=== PATIENT | male | born 1945 | race Caucasian/White ===

== ENCOUNTER 2023-09-30 09:43 | Outpatient (AMB) | payer OTHER, SELFPAY ==
--- NOTE | 2023-09-30 09:45 | HO.NEPHOV_ITS ---
Vital Signs 09/30/23 09:56 09/30/23 10:45 Height 5 ft 9 in Weight 172 lb BMI 25.4 BP 158/62 H 150/70 H Blood Pressure Location Lt brachial Lt brachial Position Sitting Standing Pulse 56 Pulse Source Pulse Oximeter Pulse Oximetry (%) 97 Oxygen Delivery Method Room Air Intake Visit Reasons: Dx- Hyponatremia Accompanied by: Brother in law Allergies statin Allergy (Unknown, Uncoded 09/30/23 10:00) Unknown Medication List - Last Reconciled 09/30/23 by Lamin Villafuerte MD amlodipine 10 mg PO DAILY calcium carbonate 500 mg PO DAILY clopidogrel 75 mg PO DAILY doxazosin 2 mg PO BID fenofibrate nanocrystallized 145 mg PO DAILY [id number] 685-89-116-300 mcg (Centrum Silver Men) 1 tab PO DAILY nebivolol 10 mg PO DAILY omega-3 acid ethyl esters 2 caps PO BID prednisolone acetate 1% drps ophthalmic (eye) valsartan 320 mg PO DAILY HPI Comments Details: . Paco is a pleasant 77 yr old man with a history of resistant hypertension for quite some time requiring at least 4 antihypertensive medications. He has been referred for hyponatremia He has been on amlodipine 10 mg Cardura 2 mg, nebivolol 10 mg and valsartan HCT 320/20 mg once a day. Few weeks ago he developed significant nausea and vomiting which required hospitalization. He was found to have severe hyponatremia with a serum sodium of 122. Hydrochlorothiazide was discontinued he was given IV fluids. Serum sodium has improved to 129 millimoles as of 09/28/2023. He was scheduled for spine surgery today but this has been placed on hold due to hyponatremia. Of note Paco has a history of smoking. He quit smoking 24 years ago. He has a history of carotid stenosis. No known history of coronary disease No history of any kidney disease in the past. Paco has been drinking plenty of free water prior to this episode. He has been drinking at least 80-90 oz of free water. [facility] Medical History (Updated 09/30/23 @ 10:40 by Lamin Villafuerte MD) Type 2 diabetes mellitus without complication Hyperglycemia Atherosclerosis of abdominal aorta Insomnia Statin myopathy Bradycardia Personal history of skin cancer Vitamin D deficiency Seborrhea Dyslipidemia Essential (primary) hypertension Carotid stenosis, asymptomatic Spinal stenosis of lumbar region without neurogenic claudication Epiretinal membrane Vitreous degeneration Adenomatous polyp of colon Review of Systems Const Denies fever(s) and Denies weight loss Card Denies chest pain Resp Denies cough and Denies hemoptysis GI Denies abdominal pain, Denies diarrhea and Denies nausea Musc Denies back pain Neuro Denies focal weakness Physical Exam Vital Signs: Last Vital Signs Pulse 56 09/30/23 09:56 BP 150/70 H 09/30/23 10:45 Pulse Ox 97 09/30/23 09:56 Oxygen Delivery Method Room Air 09/30/23 09:56 BMI result Body Mass Index 25.4 Const General: comfortable; No acute distress Orientation/consciousness: patient oriented x3 Eyes General: appearance normal, both eyes and all related structures Visual Moreland: normal visual moreland by confrontation Neck Neck: Yes supple and Yes no JVD Resp Effort & Inspection: normal respiratory effort and respiratory effort not decreased Auscultation: rhonchi Cardio Palpation: no palpable S3 and no palpable S4 Heart sounds: no rubs GI Inspection: Yes normal to inspection Palpation (GI): Soft to palpation Percussion: Yes normal to percussion Auscultation: normal bowel sounds General: Yes no CVA tenderness Back/Spine/Pelvis Back: no CVA tenderness Skin General skin exam: no petechiae and no purpura Neuro General: patient oriented x3 and no focal motor deficits Extrem General: No clubbing and No edema Results Reviewed Results Reviewed: As of 09/28/2023 Serum creatinine 1.3 Serum sodium 129. Other electrolytes normal. Nephrology Results: Sodium 133 mmol/L (135-145) L 09/30/23 Potassium 5.1 mmol/L (3.3-5.1) 09/30/23 Chloride 101 mmol/L (96-108) 09/30/23 Carbon Dioxide 24 mmol/L (22-29) 09/30/23 BUN 31 mg/dL (9-16) H 09/30/23 Creatinine 1.51 mg/dL (0.5-1.4) H 09/30/23 Calcium 10.4 mg/dL (8.4-10.2) H 09/30/23 Urine Creatinine 44.09 mg/dL 09/30/23 Assessment & Plan Assessment & Plan (1) Hyponatremia: Code(s): E87.1 - Hypo-osmolality and hyponatremia Category: Medical Plan: Hyponatremia primarily due to decreased free water clearance due to non osmotic ADH release. Serum sodium could have worsened with excessive water intake while he was on hydrochlorothiazide. Hydrochlorothiazide could decrease renal free water clearance and thereby contributes to hyponatremia. Other causes including hypothyroidism should be ruled out. Agree with discontinuing hydrochlorothiazide. I have encouraged him to limit his oral free water intake. He can cut the intake by 50%. I have initiated a workup for hyponatremia including serum and urine osmolality, TSH and repeat serum sodium levels. . (2) CKD (chronic kidney disease): Code(s): N18.9 - Chronic kidney disease, unspecified Category: Medical Plan: Paco has stage III CKD in the setting of longstanding hypertension. Probably has hypertensive nephrosclerosis. Underlying glomerular nephritis or obstructive uropathy seem unlikely based on the clinical picture and available lab data. The goal is to slow the progression of renal disease Optimize blood pressure and maintain blood pressure less than 130/80. Avoid hypotension. Continue to avoid nephrotoxic agents including NSAIDs. She will screen for comorbid conditions as well. . (3) HTN (hypertension): Code(s): I10 - Essential (primary) hypertension Category: Medical Plan: Paco has resistant hypertension. Underlying renal artery stenosis is a possibility given the history of peripheral vascular disease in the form of carotid stenosis. He has a history of smoking in the past. Concur with current medications. I will increase doxazosin from 2 mg q.d. up to 2 mg b.i.d.. Goal is to maintain blood pressure less than 130/80 mm Hg. . Orders: Orders Basic Metabolic Panel Today E87.1 - Hypo-osmolality and hyponatremia, N18.9 - Chronic kidney disease, unspecified Osmolality, Serum Today E87.1 - Hypo-osmolality and hyponatremia, N18.9 - Chronic kidney disease, unspecified Osmolality Urine Today E87.1 - Hypo-osmolality and hyponatremia, N18.9 - Chronic kidney disease, unspecified Uric Acid Today E87.1 - Hypo-osmolality and hyponatremia, N18.9 - Chronic kidney disease, unspecified Creatinine Urine Today E87.1 - Hypo-osmolality and hyponatremia, N18.9 - Chronic kidney disease, unspecified Cortisol, Free Today E87.1 - Hypo-osmolality and hyponatremia, N18.9 - Chronic kidney disease, unspecified Sodium Urine Random Today E87.1 - Hypo-osmolality and hyponatremia, N18.9 - Chronic kidney disease, unspecified TSH reflex Free T4 Today E87.1 - Hypo-osmolality and hyponatremia, N18.9 - Chronic kidney disease, unspecified Coding Level of Care Code New Pt Level 5 (05943) Diagnoses Hyponatremia E87.1 CKD (chronic kidney disease) N18.9 HTN (hypertension) I10
[2023-09-30 09:56] VITALS: BP 158/62; PULSE 56; O2SAT 97; BMI 25.4
[2023-09-30 10:45] VITALS: BP 150/70
== END 2023-09-30 10:54 | disposition home or self-care (01) ==
PROVIDERS: PCP Internal Medicine; Visit Provider Internal Medicine Hypertension Specialist
DX: E87.1 Hypo-osmolality and hyponatremia (principal); I12.9 Hypertensive chronic kidney disease with stage 1 through stage 4 chronic kidney disease, or unspecified chronic kidney disease; N18.9 Chronic kidney disease, unspecified
CPT/HCPCS: 99204

== ENCOUNTER → 2023-09-30 09:43 | Outpatient (BNVA) | payer OTHER, SELFPAY | PROVIDERS: PCP Internal Medicine; Visit Provider Internal Medicine Hypertension Specialist ==

== ENCOUNTER 2023-09-30 10:37 | Outpatient (REF) | payer OTHER, SELFPAY ==
[2023-09-30 18:26] LABS: Creatinine Urine 44.09 mg/dL
[2023-09-30 18:34] LABS: Anion Gap 13 (12-20); Blood Urea Nitrogen 31 mg/dL (9-16); Calcium 10.4 mg/dL (8.4-10.2); Carbon Dioxide 24 mmol/L (22-29); Chloride 101 mmol/L (96-108); Estimated Glomerular Filt Rate 45; Glucose Random 123 mg/dL (60-115); Potassium 5.1 mmol/L (3.3-5.1); Sodium 133 mmol/L (135-145)
[2023-09-30 18:59] LABS: TSH reflex Free T4 0.76 uIU/mL (0.32-4.0)
[2023-09-30 19:01] LABS: Osmolality Urine 389 mosm/kg (373-1093)
[2023-09-30 19:56] LABS: Osmolality, Serum 299 mosm/kg (281-305)
[2023-10-06 23:08] LABS: Cortisol, Free 0.78 mcg/dL
== END 2023-09-30 10:38 | disposition home or self-care (01) ==
LOC: HO.HKASLDS 10:37
PROVIDERS: Visit Provider Internal Medicine Hypertension Specialist
DX: E87.1 Hypo-osmolality and hyponatremia (principal); N18.9 Chronic kidney disease, unspecified
CPT/HCPCS: 36415; 80048; 82530; 82570; 83930; 83935; 84300; 84443; 84550

== ENCOUNTER 2023-12-02 09:22 | Outpatient (AMB) | payer OTHER, SELFPAY ==
[2023-12-02 09:27] VITALS: BP 130/50; PULSE 62; O2SAT 98; BMI 25.7
--- NOTE | 2023-12-02 09:27 | HO.NEPHOV_ITS ---
Vital Signs 12/02/23 09:27 Height 5 ft 9 in Weight 174 lb 6 oz BMI 25.7 BP 130/50 L Pulse 62 Pulse Source Pulse Oximeter Pulse Oximetry (%) 98 Oxygen Delivery Method Room Air Intake Visit Reasons: 3-4 wks follow up/ CON Supervisor [employer] Required: No Accompanied by: Other Relationship Allergies [id number] Reductase Inhibitor Allergy (Verified 12/02/23 09:30) Unknown Medication List - Last Reconciled 12/02/23 by Lamin Villafuerte MD amlodipine 10 mg PO DAILY calcium carbonate 500 mg PO DAILY clopidogrel 75 mg PO DAILY doxazosin 2 mg PO BID fenofibrate nanocrystallized 145 mg PO DAILY [id number] 646-55-004-300 mcg (Centrum Silver Men) 1 tab PO DAILY nebivolol 10 mg PO DAILY omega-3 acid ethyl esters 2 caps PO BID prednisolone acetate 1% drps ophthalmic (eye) valsartan 320 mg PO DAILY HPI Comments Details: . Paco is a pleasant 77 yr old man with a history of resistant hypertension for quite some time requiring at least 4 antihypertensive medications. He has been referred for hyponatremia He has been on amlodipine 10 mg Cardura 2 mg, nebivolol 10 mg and valsartan HCT 320/20 mg once a day. Few weeks ago he developed significant nausea and vomiting which required hospitalization. He was found to have severe hyponatremia with a serum sodium of 122. Hydrochlorothiazide was discontinued he was given IV fluids. Serum sodium has improved to 129 millimoles as of 09/28/2023. He was scheduled for spine surgery today but this has been placed on hold due to hyponatremia. Of note Paco has a history of smoking. He quit smoking 24 years ago. He has a history of carotid stenosis. No known history of coronary disease No history of any kidney disease in the past. 12/02/23 After discontinuing hydrochlorothiazide serum sodium has normalized. He underwent back surgery 2 weeks ago and is doing very well. [facility] Medical History (Updated 12/02/23 @ 09:41 by Lamin Villafuerte MD) Type 2 diabetes mellitus without complication Hyperglycemia Atherosclerosis of abdominal aorta Insomnia Statin myopathy Bradycardia Personal history of skin cancer Vitamin D deficiency Seborrhea Dyslipidemia Essential (primary) hypertension Carotid stenosis, asymptomatic Spinal stenosis of lumbar region without neurogenic claudication Epiretinal membrane Vitreous degeneration Adenomatous polyp of colon Surgical History (Updated 12/02/23 @ 09:31 by Jamila Thomas MA) H/O Spinal surgery Social History (Updated 12/02/23 @ 09:30 by Jamila Thomas MA) Alcohol intake: never Patient Tobacco Use Status: Former Tobacco user Physical Exam Vital Signs: Last Vital Signs Pulse 62 12/02/23 09:27 BP 130/50 L 12/02/23 09:27 Pulse Ox 98 12/02/23 09:27 Oxygen Delivery Method Room Air 12/02/23 09:27 BMI result Body Mass Index 25.7 Const General: comfortable; No acute distress Orientation/consciousness: patient oriented x3 Eyes General: appearance normal, both eyes and all related structures Visual Moreland: normal visual moreland by confrontation Neck Neck: Yes supple and Yes no JVD Resp Effort & Inspection: normal respiratory effort and respiratory effort not decreased Auscultation: rhonchi Cardio Palpation: no palpable S3 and no palpable S4 Heart sounds: no rubs GI Inspection: Yes normal to inspection Palpation (GI): Soft to palpation Percussion: Yes normal to percussion Auscultation: normal bowel sounds General: Yes no CVA tenderness Back/Spine/Pelvis Back: no CVA tenderness Skin General skin exam: no petechiae and no purpura Neuro General: patient oriented x3 and no focal motor deficits Extrem General: No clubbing and No edema Results Reviewed Results Reviewed: Recent sodium was 136 Nephrology Results: Sodium 133 mmol/L (135-145) L 09/30/23 Potassium 5.1 mmol/L (3.3-5.1) 09/30/23 Chloride 101 mmol/L (96-108) 09/30/23 Carbon Dioxide 24 mmol/L (22-29) 09/30/23 BUN 31 mg/dL (9-16) H 09/30/23 Creatinine 1.51 mg/dL (0.5-1.4) H 09/30/23 Calcium 10.4 mg/dL (8.4-10.2) H 09/30/23 Urine Creatinine 44.09 mg/dL 09/30/23 Assessment & Plan Assessment & Plan (1) Hyponatremia: Comment: Recent sodium 136 keep Code(s): E87.1 - Hypo-osmolality and hyponatremia Category: Medical Plan: Due to decreased free water clearance. Restrict oral free water intake. Goal is to maintain serum sodium more than 133 millimoles. Avoid HCTZ. recheck serum sodium today (2) CKD (chronic kidney disease): Code(s): N18.9 - Chronic kidney disease, unspecified Category: Medical Plan: Paco has stage III CKD in the setting of longstanding hypertension. Probably has hypertensive nephrosclerosis. Underlying glomerular nephritis or obstructive uropathy seem unlikely based on the clinical picture and available lab data. The goal is to slow the progression of renal disease Optimize blood pressure and maintain blood pressure less than 130/80. Avoid hypotension. Continue to avoid nephrotoxic agents including NSAIDs. . (3) HTN (hypertension): Code(s): I10 - Essential (primary) hypertension Category: Medical Plan: Paco has resistant hypertension. Underlying renal artery stenosis is a possibility given the history of peripheral vascular disease in the form of carotid stenosis. He has a history of smoking in the past. Concur with current medications. Currently blood pressure well controlled. No changes were made. Goal is to maintain blood pressure less than 130/80 mm Hg. . Orders: Orders Basic Metabolic Panel 4 Months E87.1 - Hypo-osmolality and hyponatremia, N18.9 - Chronic kidney disease, unspecified Coding Level of Care Code Est Pt Level 4 (08526) Diagnoses Hyponatremia E87.1 CKD (chronic kidney disease) N18.9 HTN (hypertension) I10
== END 2023-12-02 09:39 | disposition home or self-care (01) ==
PROVIDERS: PCP Internal Medicine; Visit Provider Internal Medicine Hypertension Specialist
DX: E87.1 Hypo-osmolality and hyponatremia (principal); I12.9 Hypertensive chronic kidney disease with stage 1 through stage 4 chronic kidney disease, or unspecified chronic kidney disease; N18.9 Chronic kidney disease, unspecified
CPT/HCPCS: 99214

== ENCOUNTER → 2023-12-02 09:22 | Outpatient (BNVA) | payer OTHER, SELFPAY | PROVIDERS: PCP Internal Medicine; Visit Provider Internal Medicine Hypertension Specialist ==